=== PATIENT | female | born 1950 | race Caucasian/White ===

== ENCOUNTER 2024-08-14 13:07 | Emergency (ER) | payer MEDICARE ==
[~2024-08-14] VITALS: Ht 152.4 cm; Wt 77.8 kg
[~2024-08-14 13:07] MED LIST: ANTI-DIARRHE2 M1 PO; CARAFATE1 GM PO; CARVEDILOL6.25 MG PO; LISINOPRIL10 MG PO; MELATONIN3 M1 PO; PAIN RELIEF325 MG PO; PROTONIX40 M2 PO; TRAZODONE100 MG PO; VENLAFAXINE HCL75 M1 PO; WELLBUTRIN XL300 MG
[2024-08-14 13:12] VITALS: BP 187/90
[2024-08-14] MEDS ORDERED: GLUCAGON HCL (Rdna) 1 MG VIAL IV ONE (13:15)
[2024-08-14 13:16] VITALS: BP 161/120
[2024-08-14 13:31] VITALS: BP 167/77
[2024-08-14 13:40] LABS: BASO% 1.1 % (0-3); EOS% 8.7 % (0-8); HEMATOCRIT 41.3 % (37.0-47.0); HEMOGLOBIN 13.2 g/dl (12.0-16.0); IMMATURE GRANULOCYTES 0.2 % (0.0-5.0); LYMPH% 25.1 % (15-41); MEAN CELL VOLUME 93.2 fL CALC (80.0-100.0); MEAN CORPUSCULAR HGB 29.8 pG CALC (26.0-32.0); MONO% 11.7 % (2-13); NEUT# 2.82 thou/uL (2.00-7.15); NEUT% 53.2 % (42-76); RED BLOOD COUNT 4.43 mill/uL (4.20-5.60); RED CELL DISTRI WIDTH 12.2 % (11.5-15.5)
[2024-08-14 13:46] VITALS: BP 180/80
[2024-08-14 14:00] VITALS: BP 186/83
[2024-08-14 14:03] LABS: ALBUMIN 4.2 g/dL (3.2-5.0); BILIRUBIN, TOTAL 0.7 mg/dL (0.02-1.3); POTASSIUM 4.3 mmol/l (3.5-5.1); TOTAL PROTEIN 6.8 g/dL (6.3-8.2)
[2024-08-14 15:53] VITALS: BP 186/83
== END 2024-08-14 16:02 | disposition home or self-care (01) ==
LOC: ED 13:07
PROVIDERS: Family Medicine
DX: T18.128A Food in esophagus causing other injury, initial encounter (principal); I10 Essential (primary) hypertension; W44.F3XA Food entering into or through a natural orifice, initial encounter
CPT/HCPCS: J1610